=== PATIENT | female | born 1995 | race Two or more races ===

== ENCOUNTER 2024-10-08 22:21 | Inpatient (IN) | payer MEDICAID, OTHER ==
[~2024-10-08] VITALS: Ht 147.3 cm; Wt 58.6 kg
--- NOTE | 2024-10-08 22:43 | ED.PDOC ---
HPI Comments 28 year old female who came to ER for chest pains. Patient states she was at home earlier, just laying down when she started experiencing palpitations, chest pains and dizziness. She then had a witnessed syncopal attack. Patient states she has been having this symptoms recently and has been having episodes of passing out as well. Chief Complaint: Chest Pain Time Seen by MD: 22:42 Reviewed Notes: Nurses Notes Allergies: Coded Allergies: NO KNOWN ALLERGIES (Unverified , 10/08/24) Information Source: Patient Mode of Arrival: Ambulatory Severity: Moderate Timing: Hours Duration: Minutes Prehospital treatment: None Location: Substernal Radiation: No Radiation Quality: Other (Palpitations) Onset: With Light Exertion PE Risk Factors: None Associated Signs and Symptoms: SOB, Palpitations, Diaphoresis, Syncope Past Medical History PAST MEDICAL HISTORY: Denies Surgical History: Denies all surgeries INSPECTOR MULTIFOCAL LENS History: Denies all INSPECTOR MULTIFOCAL LENS Hx Family History Family History: Reviewed,noncontributory to illness Social History Smoker: Non-Smoker Alcohol: Denies ETOH Use Drugs: Denies Drug Use Lives In: Home Constitutional: denies: chills, diaphoresis, fatigue, fever, malaise, sweats, weakness, others EENTM: denies: blurred vision, double vision, ear bleeding, ear discharge, ear drainage, ear pain, ear ringing, eye pain, eye redness, hearing loss, mouth pain, mouth swelling, nasal discharge, nose bleeding, nose congestion, nose pain, photophobia, tearing, throat pain, throat swelling, voice changes, others Respiratory: denies: cough, hemoptysis, orthopnea, SOB at rest, shortness of breath, SOB with excertion, stridor, wheezing, others Cardiovascular: reports: chest pain, dizzy spells, palpitations, syncope; denies: diaphoresis, Dyspnea on exertion, edema, irregular heart beat, left arm pain, lightheadedness, PND, others Gastrointestinal: denies: abdomen distended, abdominal pain, blood streaked bowels, constipated, diarrhea, dysphagia, difficulty swallowing, hematemesis, melena, nausea, poor appetite, poor fluid intake, rectal bleeding, rectal pain, vomiting, others Genitourinary: denies: abnormal vagina bleeding, burning, dyspareunia, dysuria, flank pain, frequency, hematuria, incontinence, pain, , vagina discharge, urgency, others Neurological: denies: dizziness, fainting, headache, left sided numbness, left sided weakness, numbness, paresthesia, pre-existing deficit, right sided numbness, right sided weakness, seizure, speech problems, tingling, tremors, weakness, others Musculoskeletal: denies: back pain, gout, joint pain, joint swelling, muscle pa in, muscle stiffness, neck pain, others Integumetry: denies: bruises, change in color, change in hair/nails, dryness, laceration, lesions, lumps, rash, wounds, others Allergic/Immunocompromised: denies: Difficulty Healing, Frequent Infections, Hives, Itching, others Hematologic/Lymphatic: denies: anemia, blood clots, easy bleeding, easy bruising, swollen glands, others Endocrine: denies: excessive hunger, excessive sweating, excessive thirst, excessive urination, flushing, intolerance to cold, intolerance to heat, unexplained weight gain, unexplained weight loss, others Psychiatric: denies: anxiety, bipolar disorder, depression, hopeless, panic disorder, schizophrenia, sleepless, suicidal, others Physical Exam General Appearance: No Apparent Distress, Normal HEENT: Normal ENT Inspection, Pharynx Normal, TMs Normal Neck: Full Range of Motion, Non-Tender, Normal, Normal Inspection Respiratory: Chest Non-Tender, Lungs Clear, No Accessory Muscle Use, No Respiratory Distress, Normal Breath Sounds Cardiovascular: No Edema, No JVD, No Murmur, No Gallop, Normal Peripheral Pulses, Regular Rate/Rhythm Breast Exam: Deferred Gastrointestinal: No Organomegaly, Non Tender, No Pulsatile Mass, Normal Bowel Sounds, Soft Genitalia: Deferred Pelvic: Deferred Rectal: Deferred Extremities: No calf tenderness, Normal capillary refill, Normal inspection, Normal range of motion, Non-tender, No pedal edema Musculoskeletal : Apperance: Normal Neurologic: Alert, sterilization technician II-XII nml as Tested, No Motor Deficits, Normal Affect, Normal Mood, No Sensory Deficits Cerebellar Function: Normal Reflexes: Normal Skin: Dry, Normal Color, Warm Lymphatic: No Adenopathy Was a procedure done? Was a procedure done?: No CP Differential Dx Differential Diagnosis: Angina, Anxiety / Panic Attack, Electrolyte Disorder Differential Diagnosis: Angina, Chest Wall Pain, Costochondritis, Esophageal reflux/spasm, Gastritis, Myocardial Infarction, Pneumonia X-Ray, Labs, Meds, VS Vital Signs Date Time Temp Pulse Resp B/P (MAP) Pulse Ox O2 Delivery O2 Flow Rate FiO2 10/08/24 23:32 89 17 97 Room Air* 0 21 10/08/24 23:31 98.3 92 19 123/86 (98) 100 98.3 10/08/24 23:29 93 10/08/24 22:32 98.7 91 18 119/91 (100) 100 98.7 10/08/24 22:27 89 Lab Test 10/08/24 23:14 10/08/24 22:30 Range/Units Troponin I High Sensitivity 6 7 </=34 ng/L White Blood Count 6.0 4.4-10.8 10^3/uL Red Blood Count 4.67 4.0-5.20 10^6/uL Hemoglobin 13.6 12.2-16.2 g/dL Hematocrit 40.8 36.0-46.0 % Mean Corpuscular Volume 87.2 80.0-100.0 fL Mean Corpuscular Hemoglobin 29.0 28.0-32.0 pg Mean Corpuscular Hemoglobin Concent 33.3 32.0-36.0 g/dL Red Cell Distribution Width 12.6 11.8-14.3 % Platelet Count 180 140-450 10^3/uL Mean Platelet Volume 8.8 6.9-10.8 fL Neutrophils (%) (Auto) 53.8 37.0-80.0 % Lymphocytes (%) (Auto) 37.1 10.0-50.0 % Monocytes (%) (Auto) 7.5 0.0-12.0 % Eosinophils (%) (Auto) 1.2 0.0-7.0 % Basophils (%) (Auto) 0.4 0.0-2.0 % Neutrophils # (Auto) 3.2 1.6-8.6 10 ^3/uL Lymphocytes # (Auto) 2.2 0.4-5.4 10 ^3/uL Monocytes # (Auto) 0.4 0-1.3 10 ^3/uL Eosinophils # (Auto) 0.1 0-0.8 10 ^3/uL Basophils # (Auto) 0 0-0.2 10 ^3/uL Nucleated Red Blood Cells 0.1 % Urine Color Light-yellow Yellow Urine Clarity Clear Clear Urine pH 7.0 5.0-9.0 Urine Specific [place] 1.027 1.001-1.035 Urine Protein Negative Negative Urine Ketones Negative Negative Urine Blood Negative Negative /uL Urine Nitrite Negative Negative Urine Bilirubin Negative Negative Urine Urobilinogen Normal Negative mg/dL Urine Leukocyte Esterase Trace Negative /uL Urine RBC 1 0 - 4 /hpf Urine Microscopic WBC 3 0-5 /HPF Urine Squamous Epithelial Cells Few <5 /hpf Urine Bacteria Few H None Seen /hpf Urine Hyaline Casts Few 0 - 2 /lpf Urine Glucose Normal Normal mg/dL Urine Test Negative Negative Sodium Level 139 136-145 mmol/L Potassium Level 4.0 3.5-5.1 mmol/L Chloride Level 106 98-107 mmol/L Carbon Dioxide Level 26 20-31 mmol/L Anion Gap 7 5-15 Blood Urea Nitrogen 10 9-23 mg/dL Creatinine 0.78 0.550-1.02 mg/dL Glomerular Filtration Rate Calc 106 >90 mL/min BUN/Creatinine Ratio 12.8 10.0-20.0 Serum Glucose 103 74-106 mg/dL Calcium Level 9.9 8.7-10.4 mg/dL Urine Opiates Screen Neg NEGATIVE Urine Fentanyl Screen Neg NEGATIVE Urine Barbiturates Screen Neg NEGATIVE Urine Phencyclidine Screen Neg NEGATIVE Urine Amphetamines Screen Neg NEGATIVE Urine Benzodiazepines Screen Neg NEGATIVE Urine Cocaine Screen Neg NEGATIVE Urine Cannabinoids Screen Neg NEGATIVE Current Medications Medications (Trade) Dose Ordered Sig/Dilma Route Start Time Stop Time Status Last Admin Ondansetron HCl (Zofran) 4 mg ONCE ONCE IV 10/08/24 22:45 10/08/24 22:46 DC 10/08/24 23:50 Sodium Chloride 1,000 ml @ 1,000 mls/hr Q1H ONCE IV 10/08/24 22:45 10/08/24 23:44 DC 10/08/24 23:50 Time of 1ST Reevaluation: 22:37 Reevaluation 1ST: Unchanged Patient Education/Counseling: Diagnosis, Treatment Family Education/Counseling: No Family Present Departure 1 Departure Time of Disposition: 00:42 (Patient presented with syncope today and should be admitted. Data: 1. I ordered and reviewed the result of at least 3 labs in cluding a CBC, BMP, and troponin. 2. I independently interpreted the following tests: EKG which shows a normal sinus rhythm and a chest x-ray which shows benign chest and a CT head which shows benign brain.Risk:This patient has a high risk of morbidity due to further diagnostic testing or treatment and may suffer from an acute cardiac, neurologic, or infectious disorder. Rationale: Patient should be admitted to the hospital for further management.) Impression: Primary Impression: Syncope and collapse Additional Impression: Acute chest pain Disposition: ADMITTED INPATIENT Admit to: Med Surg Condition: Serious Critical Care Note Critical Care Time?: No Stability Stability form required: No Heart Score Heart Score: Heart Score Response (Comments) Value History Slightly Suspicious 0 EKG Normal 0 Age <45 0 Risk Factors No known risk factors 0 Troponin Normal limit 0 Total 0 I personally scribed for OMAR BANKS MD ([email or web address]) on 10/08/24 at 22:43. Electronically submitted by Fabrizio Jacobsen ([email or web address]). OMAR BANKS MD Oct 08, 2024 22:43
[2024-10-08 23:10] LABS: Basophils # (auto) 0 10 ^3/uL (0-0.2); Basophils % (auto) 0.4 % (0.0-2.0); Eosinophils # (auto) 0.1 10 ^3/uL (0-0.8); Eosinophils % (auto) 1.2 % (0.0-7.0); Hematocrit 40.8 % (36.0-46.0); Hemoglobin 13.6 g/dL (12.2-16.2); Lymphocytes # (auto) 2.2 10 ^3/uL (0.4-5.4); Lymphocytes % (auto) 37.1 % (10.0-50.0); Mean Corpuscular Hgb Conc. 33.3 g/dL (32.0-36.0); Mean Corpuscular Volume 87.2 fL (80.0-100.0); Monocytes # (auto) 0.4 10 ^3/uL (0-1.3); Monocytes % (auto) 7.5 % (0.0-12.0); Neutrophils # (auto) 3.2 10 ^3/uL (1.6-8.6); Neutrophils % (auto) 53.8 % (37.0-80.0); Nucleated Red Blood Cells % 0.1 %; Platelet Count (auto) 180 10^3/uL (140-450); Red Blood Cells 4.67 10^6/uL (4.0-5.20); Red Cell Distribution Width 12.6 % (11.8-14.3)
[2024-10-08 23:15] LABS: Anion Gap 7 (5-15); Carbon Dioxide 26 mmol/L (20-31); Chloride 106 mmol/L (98-107); Sodium 139 mmol/L (136-145)
[2024-10-08 23:16] LABS: Calcium 9.9 mg/dL (8.7-10.4); Urine Bacteria FEW /hpf (None Seen); Urine Blood Negative /uL (Negative); Urine Clarity Clear (Clear); Urine Color Light-Yellow (Yellow); Urine Hyaline Cast FEW /lpf (0 - 2); Urine Protein, UAD Negative (Negative); Urine Specific Gravity 1.027 (1.001-1.035); Urine Squamous Epithelial Cell FEW /hpf (<5); Urine Urobilinogen Normal (Negative); Urine WBC 3 /HPF (0-5)
[2024-10-08 23:21] LABS: BUN/Creatinine Ratio 12.8 (10.0-20.0); Blood Urea Nitrogen 10 mg/dL (9-23); Glucose 103 mg/dL (74-106)
[2024-10-08 23:26] LABS: Amphetamine Screen, Urine Neg (NEGATIVE); Barbiturate Scree,Urine Neg (NEGATIVE); Benzodiazephine Screen, Urine Neg (NEGATIVE); Cannabinoid Screen, Urine Neg (NEGATIVE); Cocaine Screen, Urine Neg (NEGATIVE); Opiate Scree,Urine Neg (NEGATIVE); Phencyclidine Screen, Urine Neg (NEGATIVE)
[2024-10-08 23:32] VITALS: PULSE 89; RESP 17; O2SAT 97
[2024-10-08] MEDS: ONDANSETRON HCL 4 MG/2 ML VIAL IV ONE (23:50)
[2024-10-08] MEDS: SODIUM CHLORIDE 0.9% 1,000 ML IV ONE (23:50)
[2024-10-09] VITALS (10 sets, daily range): BP systolic 97–130; BP diastolic 56–96; PULSE 75–88; RESP 15–19; TEMP 98.2–98.6; O2SAT 96–100
--- NOTE | 2024-10-09 00:25 | DVH ---
CHEST RADIOGRAPH Indication: chest pain Technique: Single frontal view of the chest was obtained COMPARISON: None FINDINGS: Lines and Tubes: None Lungs: Clear Pleura: No effusion. No pneumothorax. Cardiomediastinal contours: Unremarkable Bones: Unremarkable IMPRESSION: 1. No acute disease.
--- NOTE | 2024-10-09 00:34 | DVH ---
EXAM: CT HEAD WITHOUT CONTRAST INDICATION: syncope TECHNIQUE: CT of the head without intravenous contrast. Radiation Dose : 1. Head: CT Dose: CTDI volume is 59.94 mGy. Dose-length product is 1061.25 mGy*cm The dose indicators for CT are the volume Computed Tomography (CT) Dose Index (CTDIvol) and the Dose Length Product (DLP), and are measured in units of mGy and mGy-cm, respectively. These indicators are not patient dose, but values generated from the CT scanner acquisition factors. The report includes radiation exposure data for exposures received during this examination. COMPARISON: None FINDINGS: There is no evidence of acute intracranial hemorrhage, extra-axial collection, mass effect, midline s hift, herniation or hydrocephalus. The ventricles, sulci and cisterns are age appropriate. The lerner-white differentiation is intact. The visualized paranasal sinuses and mastoid air cells are clear. The surrounding soft tissues and osseous structures are unremarkable. IMPRESSION: 1. No acute intracranial abnormality. Radiation optimization: All CT scans at this facility use at least one of these dose optimization susan hniques: automated exposure control mA and/or kV adjustment per patient size (includes targeted exam s where dose is matched to clinical indication) or iterative reconstruction.
[2024-10-09] MEDS: METOCLOPRAMIDE HCL 5MG/ml INJ 2ml VIAL IV ONE (01:22)
[2024-10-09] MEDS: ACETAMINOPHEN 325 MG TAB PO ONE (01:22)
[2024-10-09] MEDS ORDERED: DOCUSATE SOD 100 MG CAP PO PRN (04:00)
[2024-10-09] MEDS ORDERED: HYDROcodone-ACET 5/325MG TAB PO PRN (04:00)
[2024-10-09] MEDS ORDERED: MORPHINE SULFATE INJ 2 MG/ml SYRG IV PRN ×2 (04:00→04:45)
[2024-10-09] MEDS ORDERED: ONDANSETRON HCL 4 MG/2 ML VIAL IV PRN (04:00)
[2024-10-09] MEDS: SODIUM CHLORIDE 0.9% 1,000 ML IV SCH (04:04)
[2024-10-09] MEDS: SODIUM CHLORIDE 0.9% 1,000 ML IV ONE (04:20)
[2024-10-09] MEDS ORDERED: NITROGLYCERIN 0.4 MG SL TAB SL PRN (04:45)
--- NOTE | 2024-10-09 04:46 | DVHHP2 ---
History of Present Illness Reason for Visit: Acute chest pain History of Present Illness Patient is a 28 year old female who denies past medical history presented to [facility] ED with complaint of chest pain. Patient reports she has been having substernal chest pain, associated dizziness, palpitations, had a witnessed syncopal attack that prompted this visit. Patient was seen and evaluated in the ED, laboratory data shows WBC 6.0, platelets 180, sodium 138, potassium 4.0, BUN 10, creatinine 0.78, GFR 106, glucose 103, troponin 7. Chest x-ray show no acute disease. Please see medication orders section in the computer. On my assessment, patient denied chest pain, no headache, no di zziness, no shortness of breath, no nausea, no vomiting, no fever, no chills. Patient was admitted for further evaluation and medical management. Past Medical History Denies past medical history Past Surgical History Denies all surgeries Family History Reviewed, noncontributory to the management of this case. Past Social History The patient lives at home, denies smoking, alcohol or illicit drugs abuse. Review of Systems Constitutional: No: Fever, Chills, Sweats, Weakness, Malaise, Other Eyes: No: Pain, Vision change, Conjunctivae inflammation, Eyelid inflammation, Other, Redness ENT: No: Ear pain, Ear discharge, Nose pain, Nose discharge, Nose congestion, Mouth pain, Mouth swelling, Throat pain, Throat swelling, Other Respiratory: No: Cough, Dry, Shortness of breath, SOB with excertion, Wheezing, Hemoptysis, Pleuritic Pain, Sputum, Wheezing, Other Cardiovascular: Chest Pain, Palpitations, Other (Dizzy spells, syncope.); No: Orthopnea, Paroxysmal Noc. Dyspnea, Edema, Lt Headedness Gastrointestinal: No: Nausea, Vomiting, Abdominal Pain, Diarrhea, Constipation, Melena, Hematochezia, Other Genitourinary: No Dysuria, No Frequency, No Incontinence, No Hematuria, No Retention, No Other Musculoskeletal: No: other, neck pain, shoulder pain, arm pain, back pain, hand pain, leg pain, foot pain Skin: No: Rash, Lesions, Jaundice, Bruising, Other Neurological: No: Weakness, Numbness, Incoordination, Change in speech, Confusion, Seizures, Other Allergies: Coded Allergies: NO KNOWN ALLERGIES (Unverified , 10/08/24) Medications Current Medications Medications Dose Ordered Sig/Dilma Route Start Time Stop Time Status Last Admin Dose Admin Sodium Chloride 1,000 ml @ 60 mls/hr [id number] IV 10/09/24 04:00 Acetaminophen/ Hydrocodone Bitart 1 tab Q4HP PRN PO 10/09/24 04:00 Ondansetron HCl 4 mg Q4HP PRN IV 10/09/24 04:00 Docusate Sodium 100 mg BIDPRN PRN PO 10/09/24 04:00 Acetaminophen 650 mg Q6HP PRN PO 10/09/24 04:00 Morphine Sulfate 2 mg Q4HPRN PRN IV 10/09/24 04:00 Exam Vital Signs Vital Signs Date Time Temp Pulse Resp B/P (MAP) Pulse Ox O2 Delivery O2 Flow Rate FiO2 10/09/24 04:16 86/49 (61) 10/09/24 04:00 75 14 98 10/09/24 02:14 Room Air* 0 21 10/09/24 01:15 97.9 97.9 General Appearance: Alert, Oriented X3, Cooperative, No acute distress HEENT: Atraumatic, PERRLA, EOMI, Mucous membr. moist/pink Respiratory: Clear to auscultation, Normal air movement Cardiovascular: Regular rate, Normal S1, Normal S2, No murmurs Abdominal: Normal bowel sounds, Soft, No tenderness, No hepatospenomegaly, No masses Extremities: No clubbing, No cyanosis, No edema, Normal pulses, No tenderness/swelling Skin: No rashes, No breakdown, No significant lesion Neuro: Normal gait, Normal speech, Strength at 5/5 X4 ext, Normal tone, Sensation intact, Cranial nerves 3-12 NL, Reflexes 2+ Psych/Mental Status: Mental status NL, Mood NL Labs/Xrays Labs Test 10/08/24 23:14 10/08/24 22:30 Range/Units Troponin I High Sensitivity 6 </=34 ng/L White Blood Count 6.0 4.4-10.8 10^3/uL Red Blood Count 4.67 4.0-5.20 10^6/uL Hemoglobin 13.6 12.2-16.2 g/dL Hematocrit 40.8 36.0-46.0 % Mean Corpuscular Volume 87.2 80.0-100.0 fL Mean Corpuscular Hemoglobin 29.0 28.0-32.0 pg Mean Corpuscular Hemoglobin Concent 33.3 32.0-36.0 g/dL Red Cell Distribution Width 12.6 11.8-14.3 % Platelet Count 180 140-450 10^3/uL Mean Platelet Volume 8.8 6.9-10.8 fL Neutrophils (%) (Auto) 53.8 37.0-80.0 % Lymphocytes (%) (Auto) 37.1 10.0-50.0 % Monocytes (%) (Auto) 7.5 0.0-12.0 % Eosinophils (%) (Auto) 1.2 0.0-7.0 % Basophils (%) (Auto) 0.4 0.0-2.0 % Neutrophils # (Auto) 3.2 1.6-8.6 10 ^3/uL Lymphocytes # (Auto) 2.2 0.4-5.4 10 ^3/uL Monocytes # (Auto) 0.4 0-1.3 10 ^3/uL Eosinophils # (Auto) 0.1 0-0.8 10 ^3/uL Basophils # (Auto) 0 0-0.2 10 ^3/uL Nucleated Red Blood Cells 0.1 % Urine Color Light-yellow Yellow Urine Clarity Clear Clear Urine pH 7.0 5.0-9.0 Urine Specific [place] 1.027 1.001-1.035 Urine Protein Negative Negative Urine Ketones Negative Negative Urine Blood Negative Negative /uL Urine Nitrite Negative Negative Urine Bilirubin Negative Negative Urine Urobilinogen Normal Negative mg/dL Urine Leukocyte Esterase Trace Negative /uL Urine RBC 1 0 - 4 /hpf Urine Microscopic WBC 3 0-5 /HPF Urine Squamous Epithelial Cells Few <5 /hpf Urine Bacteria Few H None Seen /hpf Urine Hyaline Casts Few 0 - 2 /lpf Urine Glucose Normal Normal mg/dL Urine Test Negative Negative Sodium Level 139 136-145 mmol/L Potassium Level 4.0 3.5-5.1 mmol/L Chloride Level 106 98-107 mmol/L Carbon Dioxide Level 26 20-31 mmol/L Anion Gap 7 5-15 Blood Urea Nitrogen 10 9-23 mg/dL Creatinine 0.78 0.550-1.02 mg/dL Glomerular Filtration Rate Calc 106 >90 mL/min BUN/Creatinine Ratio 12.8 10.0-20.0 Serum Glucose 103 74-106 mg/dL Calcium Level 9.9 8.7-10.4 mg/dL Urine Opiates Screen Neg NEGATIVE Urine Fentanyl Screen Neg NEGATIVE Urine Barbiturates Screen Neg NEGATIVE Urine Phencyclidine Screen Neg NEGATIVE Urine Amphetamines Screen Neg NEGATIVE Urine Benzodiazepines Screen Neg NEGATIVE Urine Cocaine Screen Neg NEGATIVE Urine Cannabinoids Screen Neg NEGATIVE PATIENT: DOUG SANDOVALACCT: [id number] UNIT: [id number] : 1995 LOC: ER ROOM / BED: / AGE / SEX: 28 / F ADM STATUS: REG ER SERVICE 0007 ORDERING PHYSICIAN: OMAR BANKS MD PROCEDURE(s): HWOCT - HEAD WITHOUT CONTRAST REASON: syncope ORDER NUMBER(s): [id number], ACCESSION NUMBER(s): [id number] EXAM: CT HEAD WITHOUT CONTRAST INDICATION: syncope TECHNIQUE: CT of the head without intravenous contrast. Radiation Dose: 1. Head: CT Dose: CTDI volume is 59.94 mGy. Dose-length product is 1061.25 mGy*cm The dose indicators for CT are the volume Computed Tomography (CT) Dose Index (CTDIvol) and the Dose Length Product (DLP), and are measured in units of mGy and mGy-cm, respectively. These indicators are not patient dose, but values generated from the CT scanner acquisition factors. The report includes radiation exposure data for exposures received during this examination. COMPARISON: None FINDINGS: There is no evidence of acute intracranial hemorrhage, extra-axial collection, mass effect, midline shift, herniation or hydrocephalus. The ventricles, sulci and cisterns are age appropriate. The lerner-white differentiation is intact. The visualized paranasal sinuses and mastoid air cells are clear. The surrounding soft tissues and osseous structures are unremarkable. IMPRESSION: 1. No acute intracranial abnormality. ORDERING PHYSICIAN: OMAR BANKS MD PROCEDURE(s): CXRP - CHEST PORTABLE REASON: chest pain ORDER NUMBER(s): [id number], ACCESSION NUMBER(s): [id number] CHEST RADIOGRAPH Indication: chest pain Technique: Single frontal view of the chest was obtained COMPARISON: None FINDINGS: Lines and Tubes: None Lungs: Clear Pleura: No effusion. No pneumothorax. Cardiomediastinal contours: Unremarkable Bones: Unremarkable IMPRESSION: 1. No acute disease. Assessment/Plan Assessment/Plan Acute abdominal pain Syncope and collapse Plan 1. Admit to telemetry unit 2. Breathing treatment 3. Pain control management 4. Management of fluids and electrolytes 5. Consultation for hospitalist 6. Diagnostic tests chest x-ray 7. DVT prophylaxis on SCDs 8. Repeat labs CBC, CMP in a.m. 9. Continue with current medical management 10. Treatment plan discussed with patient and RN. Patient verbalized understanding. Plan discussed with: Patient, Other (RN) My Orders Orders - KELECHI OBREGON DNP Procedure Category Date Status Time Allergies SHAYLA 10/09/24 In Process 03:55 Code Status CODE 10/09/24 Transmitted 03:55 Sodium Chloride 0.9% PHA 10/09/24 In Process 04:00 Oxygen Per Hour RT 10/09/24 Transmitted 03:55 Hydrocodone-Acet PHA 10/09/24 In Process 5/325mg Tab (Pilot 04:00 Ondansetron Hcl PHA 10/09/24 In Process (Zofran) 04:00 Docusate Sodium PHA 10/09/24 In Process Capsule (Colace 04:00 Complete Blood Count LAB 10/10/24 Verified 04:00 Comprehensive LAB 10/10/24 Verified Metabolic Panel 04:00 Cardiac DIET 10/09/24 Transmitted Diet-2gna,Lofat,Lochol Breakfast Condition: Serious SHAYLA 10/09/24 In Process 03:55 Acetaminophen Tablet PHA 10/09/24 In Process (Tylenol Tablet) 04:00 Bedrest With Bathroom SHAYLA 10/09/24 In Process Privileg 03:55 Morphine Sulfate PHA 10/09/24 In Process Injection 04:00 Sequential SHAYLA 10/09/24 In Process Compression Device Problem List: (1) Acute chest pain (2) Syncope and collapse Date of Service: Oct 09, 2024 Billing Provider: KELECHI OBREGON DNP Common Visit Codes: 77961-[id number] INP/OBS CARE (HIGH) KELECHI OBREGON DNP Oct 09, 2024 04:46
[2024-10-09] MEDS: SODIUM CHLORIDE 0.9% 500 ML IV ONE (05:07)
[2024-10-09] MEDS: ACETAMINOPHEN 325 MG TAB PO PRN (06:47)
[2024-10-09 11:45] LABS: INR 1.01 (0.9-1.15); Partial Thromboplastin Time 33.3 SEC (24.5-34.5); Prothrombin Time 10.7 sec (9.3-11.8)
[2024-10-09 11:56] LABS: Albumin 3.8 g/dL (3.2-4.8); Magnesium 1.8 mg/dL (1.6-2.6); Total Protein 6.3 g/dL (5.7-8.2)
[2024-10-09 11:57] LABS: Bilirubin, Direct 0.1 mg/dL (<0.3); Bilirubin, Total 0.6 mg/dL (0.2-1.0)
[2024-10-09 12:18] LABS: Beta HCG, Quantitative < 1.5 mIU/mL (1.5-4.2)
[2024-10-09 12:19] LABS: Thyroid Stimulating Hormone 1.71 uIU/mL (0.55-4.78)
--- NOTE | 2024-10-09 13:10 | DVH ---
Carotid Duplex Date: 10/09/2024 12:15 PM Clinical History: syncope Comparison: None Technique: Duplex Doppler evaluation of the extracranial carotid and vertebral arteries including color Doppler and spectral/pulsed waveform analysis was performed. Findings: Velocities and ratios within normal limits. IMPRESSION: No hemodynamically significant stenosis noted in the right carotid system. No hemodynamically significant stenosis noted in the left carotid system. Reference: Radiology 2003; 229:340-346
--- NOTE | 2024-10-09 15:37 | DVHSR ---
APPROVED REPORT EXAM: Two-dimensional and M-mode echocardiogram with Doppler and color Doppler. Blood Pressure: 111/76 mmHg INDICATION syncopal event, hx of AR dad 20s RISK FACTORS Height: 50, Weight: 131 DIMENSIONS LVDd4.4 (3.8-5.7cm)LA (2D)3.6 (1.9-4.0cm)Aortic Root2.5 (2.0-3.7cm) LVDs3.0 (2.5-4.0cm)LA (MM) (1.9-4.0cm)Aortic Cusp Exc1.6 (1.5-2.0cm) EF (%) 60.0 (55-70%)Rt. Atrium3.7 (1.9-4.0cm)Asc. Aorta cm IVSd0.7 (0.7-1.1cm)RV (D) (1.8-2.4cm) PWd0.9 (0.7-1.1cm) Mitral Valve MitralMitral Stenosis E wave1.09m/sMV Mean GR.mmHg A wave0.64m/sMV Peak GR.mmHg E/A ratio1.72D MVAcm2 DECEL [id number] 1/2 [id number] IVRTmsDop MVA2.68cm2 Aortic Valve Aortic ValveAortic Stenosis V11.12m/Mariano Mean GR.5mmHg V21.54m/Mariano Peak GR.9mmHg LVOT Diameter1.7 (1.8-2.4cm)Doppler AVA1.65cm2 Pulmonic Valve V20.85m/s Tricuspid Valve TR Velocity1.95m/s [id number] Conclusion Technically a good study sinus rhythm. Normal chamber sizes. Valves are normal. Left ventricular systolic performance is preserved at 60% with normal RV function. Doppler reveals no significant abnormalities. Normal Doppler. Small inferior pericardial effusion not hemodynamically significant. No masses or vegetations
--- NOTE | 2024-10-09 15:40 | DVHPNRES ---
Progress Note Date Seen: Oct 09, 2024 Resident Creating Document: PATRICK VOGT RESIDENT Medical Necessity Reason Pt with a Central, PICC or Fol: No Subjective Review of Systems This is a 28-year-old female with no relevant past medical history who presented to the ER with a chief complaint of syncopal episode and chest pain. 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 She has been having chest pain for the past 2 months on exertion and on walking. She reports standing up and was walking when she felt lightheaded and collapsed, her mother caught her from falling but patient lost consciousness for a couple of seconds. She did not had any tongue biting or seizure-like activity. Did not lose urine or bowel. She has 2-3 episodes like these in the past 2 months. Family history significant for sudden cardiac in father at the age of 20s when the patient was 4-year-old. Social history: She denies smoking drinking illicit drug use. Home Medication: Denies taking any medication. Does not have a PCP Patient seen and examined at the bedside. Orthostatic vitals are unremarkable. CT head unremarkable. BNP 1 1 6. Echocardiogram ordered. tele monitor, shows NSR, no events. Carotid Doppler unremarkable. Objective vital signs Vital Sign Date Time Temp Pulse Resp B/P (MAP) Pulse Ox O2 Delivery O2 Flow Rate FiO2 10/09/24 12:13 88 111/76 (88) 127/87 (100) 130/96 (107) 10/09/24 08:53 98.2 15 99 98.2 10/09/24 08:00 Room Air* 0 21 Total Intake and Output 10/08/24 10/08/24 10/09/24 15:00 23:00 07:00 Intake Total 2500 ml Balance 2500 ml medications Current Medications Medications Dose Ordered Sig/Dilma Route Start Time Stop Time Status Last Admin Dose Admin Sodium Chloride 1,000 ml @ 60 mls/hr [id number] IV 10/09/24 04:00 10/09/24 05:37 60 MLS/HR Acetaminophen/ Hydrocodone Bitart 1 tab Q4HP PRN PO 10/09/24 04:00 Ondansetron HCl 4 mg Q4HP PRN IV 10/09/24 04:00 Docusate Sodium 100 mg BIDPRN PRN PO 10/09/24 04:00 Acetaminophen 650 mg Q6HP PRN PO 10/09/24 04:00 10/09/24 06:47 650 MG Morphine Sulfate 2 mg Q4HPRN PRN IV 10/09/24 04:00 Nitroglycerin 0.4 mg Q5MINP PRN SL 10/09/24 04:45 Morphine Sulfate 2 mg Q30M PRN IV 10/09/24 04:45 Examination Patient lying in bed, in no acute distress General: Well-built, afebrile, palor, mucosae are moist Cardiovascular: Regular S1 and S2. No murmurs, gallops or rubs. No JVD elevation. No pedal edema Respiratory: Normal B/L air entry on room air. Clear lung sounds on auscultation Abdomen: Soft, nontender, nondistended, normoactive bowel sounds, no rebound tenderness, no organomegaly, no masses Genitourinary: Deferred MSK/skin: Mobilizes 4 limbs. Skin is dry and warm Neurological: No motor, no sensitive deficits, normal speech. Pupils are isocoric and reactive. Psych/Mental Status: A/Ox3 laboratory and microbiology Laboratory Tests 10/08/24 22:30 Test 10/08/24 22:30 Range/Units Serum Glucose 103 74-106 mg/dL Labs and/or images reviewed: Labs reviewed by me, Image(s) reviewed by me Problem List/Assessment/Plan Problem List/Assessment/Plan Recurrent Syncopal episodes Chest pain, rule out ACS Rule out orthostatic hypotension Family history of sudden cardiac Rule out stroke Head CT unremarkable, carotid Doppler WNL BNP 1 1 6 Echocardiogram pending MRI brain pending DVT prophylaxis: Patient is ambulatory Plan discussed with patient in which all questions have been answered Goals of care discussed for more than 20 minutes, full code status Case discussed with Dr. Birch Plan discussed with: Patient My Orders My Orders Orders - PATRICK VOGT RESIDENT Procedure Category Date Status Time Vitamin B12 LAB 10/09/24 In Process 08:52 Vitamin D, 25-Hydroxy LAB 10/09/24 In Process 08:52 Orthostatic Vital ORDERS 10/09/24 Transmitted Signs 11:08 Echo 2d Mode Cardiac US 10/09/24 Taken DOP 11:46 Carotid Duplx W Color US 10/09/24 Resulted DOP 11:46 Brain Head Wo Contrast MRI 10/09/24 Logged 13:06 Date of Service: Oct 09, 2024 Billing Provider: QUIN BIRCH DO Common Visit Codes: [id number] INP/OBS CARE(HIGH) PATRICK VOGT RESIDENT Oct 09, 2024 15:40 QUIN BIRCH DO Oct 09, 2024 20:17
--- NOTE | 2024-10-09 15:57 | DVH ---
EXAMINATION: MRI BRAIN HEAD WO CONTRAST INDICATION: syncope COMPARISON: None TECHNIQUE: Multiplanar, multisequence magnetic resonance imaging of the brain was performed without the use of i ntravenous contrast. FINDINGS: No evidence of acute or remote infarct. No intracranial hemorrhage. No mass effect. The ventricles and sulci are normal in size for age. Clear basal cisterns. Flow voids in the major intracranial vessels are maintained. No abnormality of the orbits. Paranasal sinuses and mastoid air cells are clear. No abnormality of the visualized osseous structures and extracranial soft tissues. IMPRESSION: No acute infarct, intracranial hemorrhage, mass effect, or hydrocephalus.
[2024-10-10 05:00] VITALS: BP 105/53; PULSE 94; RESP 19; TEMP 98.3; O2SAT 100
[2024-10-10 05:43] LABS: Basophils # (auto) 0 10 ^3/uL (0-0.2); Basophils % (auto) 0.4 % (0.0-2.0); Eosinophils # (auto) 0.1 10 ^3/uL (0-0.8); Eosinophils % (auto) 1.8 % (0.0-7.0); Hematocrit 34.9 % (36.0-46.0); Hemoglobin 12.1 g/dL (12.2-16.2); Lymphocytes # (auto) 1.9 10 ^3/uL (0.4-5.4); Lymphocytes % (auto) 42.4 % (10.0-50.0); Mean Corpuscular Hemoglobin 30.2 pg (28.0-32.0); Mean Corpuscular Hgb Conc. 34.6 g/dL (32.0-36.0); Mean Corpuscular Volume 87.4 fL (80.0-100.0); Monocytes # (auto) 0.4 10 ^3/uL (0-1.3); Monocytes % (auto) 8.5 % (0.0-12.0); Neutrophils # (auto) 2.1 10 ^3/uL (1.6-8.6); Neutrophils % (auto) 46.9 % (37.0-80.0); Nucleated Red Blood Cells % 0.1 %; Platelet Count (auto) 150 10^3/uL (140-450); Red Cell Distribution Width 12.6 % (11.8-14.3); White Blood Cell 4.5 10^3/uL (4.4-10.8)
[2024-10-10 06:00] LABS: Albumin 3.9 g/dL (3.2-4.8); Alkaline Phosphatase 77 U/L (46-116); Anion Gap 9 (5-15); BUN/Creatinine Ratio 13.4 (10.0-20.0); Bilirubin, Total 0.4 mg/dL (0.2-1.0); Calcium 9.3 mg/dL (8.7-10.4); Carbon Dioxide 23 mmol/L (20-31); Magnesium 1.8 mg/dL (1.6-2.6); Potassium 3.9 mmol/L (3.5-5.1); Sodium 140 mmol/L (136-145); Total Protein 6.5 g/dL (5.7-8.2)
[2024-10-10 06:01] LABS: Alanine Aminotransferase 55 U/L (7-40); Aspartate Aminotransferase 43 U/L (13-40); Blood Urea Nitrogen 9 mg/dL (9-23); Chloride 108 mmol/L (98-107); Glucose 113 mg/dL (74-106)
[2024-10-10 08:05] VITALS: PULSE 75
--- NOTE | 2024-10-10 08:50 | DVHINCON2 ---
Date of service: Oct 10, 2024 History of Present Illness 28 yo F with no PMH admitted for syncope. pt was feeling dizzy while laying down and ran into house to tell her mom. while standing, she had LOC gfor 2-3 seconds and fell. this has happened before. no PMH. no PSH. father had a hx of early in his 30s but pt has no info regarding this admittedly Past Medical History reviewed Family History: Cardiovascular disease G8 FATHER FH: cancer G8 MOTHER Allergies: Coded Allergies: NO KNOWN ALLERGIES (Unverified , 10/08/24) Home Meds No Active Prescriptions or Reported Meds Review of Systems 10 pt ros otherwise negative Vital Signs Vital Signs Date Time Temp Pulse Resp B/P (MAP) Pulse Ox O2 Delivery O2 Flow Rate FiO2 10/10/24 05:00 98.3 94 19 105/53 (70) 100 98.3 10/09/24 20:00 Room Air* 0 21 Physical Exam nad s1 s2 rrr ctab soft nt/nd no edema Labs/Diagnostic Data Labs Test 10/10/24 04:40 10/09/24 10:50 10/08/24 23:14 10/08/24 22:30 Range/Units White Blood Count 4.5 4.4-10.8 10^3/uL Red Blood Count 4.00 4.0-5.20 10^6/uL Hemoglobin 12.1 L 12.2-16.2 g/dL Hematocrit 34.9 #L 36.0-46.0 % Mean Corpuscular Volume 87.4 80.0-100.0 fL Mean Corpuscular Hemoglobin 30.2 28.0-32.0 pg Mean Corpuscular Hemoglobin Concent 34.6 32.0-36.0 g/dL Red Cell Distribution Width 12.6 11.8-14.3 % Platelet Count 150 140-450 10^3/uL Mean Platelet Volume 8.8 6.9-10.8 fL Neutrophils (%) (Auto) 46.9 37.0-80.0 % Lymphocytes (%) (Auto) 42.4 10.0-50.0 % Monocytes (%) (Auto) 8.5 0.0-12.0 % Eosinophils (%) (Auto) 1.8 0.0-7.0 % Basophils (%) (Auto) 0.4 0.0-2.0 % Neutrophils # (Auto) 2.1 1.6-8.6 10 ^3/uL Lymphocytes # (Auto) 1.9 0.4-5.4 10 ^3/uL Monocytes # (Auto) 0.4 0-1.3 10 ^3/uL Eosinophils # (Auto) 0.1 0-0.8 10 ^3/uL Basophils # (Auto) 0 0-0.2 10 ^3/uL Nucleated Red Blood Cells 0.1 % Sodium Level 140 136-145 mmol/L Potassium Level 3.9 3.5-5.1 mmol/L Chloride Level 108 H 98-107 mmol/L Carbon Dioxide Level 23 20-31 mmol/L Anion Gap 9 5-15 Blood Urea Nitrogen 9 9-23 mg/dL Creatinine 0.67 0.550-1.02 mg/dL Glomerular Filtration Rate Calc 122 >90 mL/min BUN/Creatinine Ratio 13.4 10.0-20.0 Serum Glucose 113 H 74-106 mg/dL Calcium Level 9.3 8.7-10.4 mg/dL Magnesium Level 1.8 1.6-2.6 mg/dL Total Bilirubin 0.4 0.2-1.0 mg/dL Aspartate Amino Transferase (AST) 43 H 13-40 U/L Alanine Aminotransferase (ALT) 55 H 7-40 U/L Alkaline Phosphatase 77 46-116 U/L Total Protein 6.5 5.7-8.2 g/dL Albumin 3.9 3.2-4.8 g/dL Prothrombin Time 10.7 9.3-11.8 sec Prothrombin Time INR 1.01 0.9-1.15 Activated Partial Thromboplast Time 33.3 24.5-34.5 SEC Direct Bilirubin 0.1 <0.3 mg/dL B-Type Natriuretic Peptide 116.50 0-100 pg/mL Thyroid Stimulating Hormone (TSH) 1.71 0.55-4.78 uIU/mL Beta HCG, Quantitative < 1.5 L 1.5-4.2 mIU/mL Troponin I High Sensitivity 6 </=34 ng/L Urine Color Light-yellow Yellow Urine Clarity Clear Clear Urine pH 7.0 5.0-9.0 Urine Specific [place] 1.027 1.001-1.035 Urine Protein Negative Negative Urine Ketones Negative Negative Urine Blood Negative Negative /uL Urine Nitrite Negative Negative Urine Bilirubin Negative Negative Urine Urobilinogen Normal Negative mg/dL Urine Leukocyte Esterase Trace Negative /uL Urine RBC 1 0 - 4 /hpf Urine Microscopic WBC 3 0-5 /HPF Urine Squamous Epithelial Cells Few <5 /hpf Urine Bacteria Few H None Seen /hpf Urine Hyaline Casts Few 0 - 2 /lpf Urine Glucose Normal Normal mg/dL Urine Test Negative Negative Urine Opiates Screen Neg NEGATIVE Urine Fentanyl Screen Neg NEGATIVE Urine Barbiturates Screen Neg NEGATIVE Urine Phencyclidine Screen Neg NEGATIVE Urine Amphetamines Screen Neg NEGATIVE Urine Benzodiazepines Screen Neg NEGATIVE Urine Cocaine Screen Neg NEGATIVE Urine Cannabinoids Screen Neg NEGATIVE Assessment syncope Plan/Recommendation FH doesnt constitute hx of SCD likely vasovagal syncope by history check orthostatics ecg is SR and normal, echo is normal if pt desires, she can consider genetic eval at [facility] if recurrence occurs to r/o channelopathy no inpatient cv needs at this time signing off Plan discussed with: Patient AMADO ROBERTS MD Oct 10, 2024 08:50
[2024-10-10 09:00] VITALS: BP 100/64; PULSE 73; RESP 16; TEMP 98.2; O2SAT 99
--- NOTE | 2024-10-10 09:34 | DVH ---
ULTRASOUND ABDOMEN LIMITED INDICATION: Transamnitis TECHNIQUE: Multiple real-time sonographic images of the abdomen were obtained. COMPARISON: None FINDINGS: The visualized liver parenchyma appears homogenous . The liver measures 13.5 cm. No discrete he patic lesion or intrahepatic biliary ductal dilatation is identified. There is a 1.2 cm gallstone in the gallbladder neck.. Gallbladder appears contracted. There is no per icholecystic fluid. The systems software developer reports a negative Rice's sign. The common biliary duct is not dilated. The right kidney measures 11.1 cm length. No sonographic evidence of nephrolithiasis or hydronephro sis. Visualized portions of the pancreas appears within normal limits. IMPRESSION: 1. Contracted gallbladder with a 1.2 cm calculus in the gallbladder neck. The systems software developer reports a n egative Rice's sign. There is no pericholecystic fluid. HS:Y
--- NOTE | 2024-10-10 10:11 | ECG ---
[facility] Test Date: 2024-10-08 Test Time: 23:29:40 Pat Name: DOUG CORDOVA Department: ED Room: 0286T A Gender: F Check Processing Clerk: ARTEMIO : 1995 Requested By: OMAR BANKS Order Number: [id number] Reading MD: Alok Choi Measurements Intervals Renick Rate: 83 P: 48 KS: 138 QRS: 62 QRSD: 82 T: 45 QT: 364 QTc: 428 Interpretive Statements Sinus rhythm Electronically Signed On 10-13-2024 13:18:04 PDT by Alok Choi Please click the below link to view image of tracing.
--- NOTE | 2024-10-10 10:11 | ECG ---
[facility] Test Date: 2024-10-08 Test Time: 22:27:03 Pat Name: DOUG CORDOVA Department: ED Room: [facility]6T A Gender: F Trousseau Consultant: ARVIN : 1995 Requested By: OMAR BANKS Order Number: [id number] Reading MD: Alok Choi Measurements Intervals Victor Rate: 89 P: 34 IA: 148 QRS: 69 QRSD: 80 T: 57 QT: 354 QTc: 431 Interpretive Statements Sinus rhythm RSR' in V1 or V2, right VCD or RVH Electronically Signed On 10-13-2024 13:17:57 PDT by Alok Choi Please click the below link to view image of tracing.
[2024-10-10] MEDS ORDERED: CHOL500021 OR (11:45)
--- NOTE | 2024-10-10 11:51 | DVHDSRES ---
Discharge Summary Date of Admission Resident Creating Document: PATRICK VOGT RESIDENT Oct 09, 2024 at 04:45 Date of Discharge: Oct 10, 2024 Admitting Diagnosis Syncopal episode and chest pain Labs/Diagnostic Data: Laboratory Results Test 10/10/24 04:40 10/09/24 10:50 10/08/24 23:14 10/08/24 22:30 White Blood Count 4.5 10^3/uL (4.4-10.8) Red Blood Count 4.00 10^6/uL (4.0-5.20) Hemoglobin 12.1 g/dL (12.2-16.2) Hematocrit 34.9 % (36.0-46.0) Mean Corpuscular Volume 87.4 fL (80.0-100.0) Mean Corpuscular Hemoglobin 30.2 pg (28.0-32.0) Mean Corpuscular Hemoglobin Concent 34.6 g/dL (32.0-36.0) Red Cell Distribution Width 12.6 % (11.8-14.3) Platelet Count 150 10^3/uL (140-450) Mean Platelet Volume 8.8 fL (6.9-10.8) Neutrophils (%) (Auto) 46.9 % (37.0-80.0) Lymphocytes (%) (Auto) 42.4 % (10.0-50.0) Monocytes (%) (Auto) 8.5 % (0.0-12.0) Eosinophils (%) (Auto) 1.8 % (0.0-7.0) Basophils (%) (Auto) 0.4 % (0.0-2.0) Neutrophils # (Auto) 2.1 10 ^3/uL (1.6-8.6) Lymphocytes # (Auto) 1.9 10 ^3/uL (0.4-5.4) Monocytes # (Auto) 0.4 10 ^3/uL (0-1.3) Eosinophils # (Auto) 0.1 10 ^3/uL (0-0.8) Basophils # (Auto) 0 10 ^3/uL (0-0.2) Nucleated Red Blood Cells 0.1 % Sodium Level 140 mmol/L (136-145) Potassium Level 3.9 mmol/L (3.5-5.1) Chloride Level 108 mmol/L (98-107) Carbon Dioxide Level 23 mmol/L (20-31) Anion Gap 9 (5-15) Blood Urea Nitrogen 9 mg/dL (9-23) Creatinine 0.67 mg/dL (0.550-1.02) Glomerular Filtration Rate Calc 122 mL/min (>90) BUN/Creatinine Ratio 13.4 (10.0-20.0) Serum Glucose 113 mg/dL (74-106) Calcium Level 9.3 mg/dL (8.7-10.4) Magnesium Level 1.8 mg/dL (1.6-2.6) Total Bilirubin 0.4 mg/dL (0.2-1.0) Aspartate Amino Transferase (AST) 43 U/L (13-40) Alanine Aminotransferase (ALT) 55 U/L (7-40) Alkaline Phosphatase 77 U/L (46-116) Total Protein 6.5 g/dL (5.7-8.2) Albumin 3.9 g/dL (3.2-4.8) Prothrombin Time 10.7 sec (9.3-11.8) Prothrombin Time INR 1.01 (0.9-1.15) Activated Partial Thromboplast Time 33.3 SEC (24.5-34.5) Direct Bilirubin 0.1 mg/dL (<0.3) B-Type Natriuretic Peptide 116.50 pg/mL (0-100) Vitamin B12 Level 412 pg/mL (211-911) Vitamin D 25-Hydroxy 27.3 ng/mL (30.0-100) Thyroid Stimulating Hormone (TSH) 1.71 uIU/mL (0.55-4.78) Beta HCG, Quantitative < 1.5 mIU/mL (1.5-4.2) Troponin I High Sensitivity 6 ng/L (</=34) Urine Color Light-yellow (Yellow) Urine Clarity Clear (Clear) Urine pH 7.0 (5.0-9.0) Urine Specific [place] 1.027 (1.001-1.035) Urine Protein Negative (Negative) Urine Ketones Negative (Negative) Urine Blood Negative /uL (Negative) Urine Nitrite Negative (Negative) Urine Bilirubin Negative (Negative) Urine Urobilinogen Normal mg/dL (Negative) Urine Leukocyte Esterase Trace /uL (Negative) Urine RBC 1 /hpf (0 - 4) Urine Microscopic WBC 3 /HPF (0-5) Urine Squamous Epithelial Cells Few /hpf (<5) Urine Bacteria Few /hpf (None Seen) Urine Hyaline Casts Few /lpf (0 - 2) Urine Glucose Normal mg/dL (Normal) Urine Test Negative (Negative) Urine Opiates Screen Neg (NEGATIVE) Urine Fentanyl Screen Neg (NEGATIVE) Urine Barbiturates Screen Neg (NEGATIVE) Urine Phencyclidine Screen Neg (NEGATIVE) Urine Amphetamines Screen Neg (NEGATIVE) Urine Benzodiazepines Screen Neg (NEGATIVE) Urine Cocaine Screen Neg (NEGATIVE) Urine Cannabinoids Screen Neg (NEGATIVE) Other Laboratory Tests 10/10/24 04:40 Brief Hx & Hospital Course: This is a 28-year-old female with no relevant past medical history who presented to the ER with a chief complaint of syncopal episode and chest pain. 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 She has been having chest pain for the past 2 months on exertion and on walking. She reports standing up and was walking when she felt lightheaded and collapsed, her mother caught her from falling but patient lost consciousness for a couple of seconds. She did not had any tongue biting or seizure-like activity. Did not lose urine or bowel. She has 2-3 episodes like these in the past 2 months. Family history significant for sudden cardiac in father at the age of 20s when the patient was 4-year-old. Social history: She denies smoking drinking illicit drug use. Home Medication: Denies taking any medication. Does not have a PCP During hospitalization, EKG shows normal sinus rhythm, telemetry was unremarkable. Ruled out orthostatic hypotension. CT head and MRI brain was unremarkable. BNP 116, echocardiogram showed Normal chamber sizes, Valves are normal. Left ventricular systolic performance is preserved at 60% with normal RV function. Carotid Doppler was unremarkable. Hospice Massage Therapist consulted - patient likely has vasovagal syncope. if pt desires, she can consider genetic eval at [facility] if recurrence occurs to r/o channelopathy. She also had transaminitis, liver ultrasound shows Contracted gallbladder with a 1.2 cm calculus in the gallbladder neck. The medical device assembler reports a negative Rice's sign. There is no pericholecystic fluid. Repeat orthostatics were completed 10/10 which showed pulse going up from 92 till 113 bpm, likely postural tachycardia syndrome. Blood pressure also increased. 10/10-patient is hemodynamically stable, clinically stable and is therefore being discharged home with the advice to follow up with discharge clinic within 7 days, primary care physician within 7 days. Physical examination the day of discharge: General: Well-built, afebrile, palor, mucosae are moist Cardiovascular: Regular S1 and S2. No murmurs, gallops or rubs. No JVD elevation. No pedal edema Respiratory: Normal B/L air entry on room air. Clear lung sounds on auscultation Abdomen: Soft, nontender, nondistended, normoactive bowel sounds, no rebound tenderness, no organomegaly, no masses Genitourinary: Deferred MSK/skin: Mobilizes 4 limbs. Skin is dry and warm Neurological: No motor, no sensitive deficits, normal speech. Pupils are isocoric and reactive. Psych/Mental Status: A/Ox3 Case discussed with Dr. Awan Consults/Reason for consult Cardiology consult for syncopal events Operations or Procedures ULTRASOUND ABDOMEN LIMITED INDICATION: Transamnitis TECHNIQUE: Multiple real-time sonographic images of the abdomen were obtained. COMPARISON: None FINDINGS: The visualized liver parenchyma appears homogenous . The liver measures 13.5 cm. No discrete hepatic lesion or intrahepatic biliary ductal dilatation is identified. There is a 1.2 cm gallstone in the gallbladder neck.. Gallbladder appears contracted. There is no pericholecystic fluid. The medical device assembler reports a negative Rice's sign. The common biliary duct is not dilated. The right kidney measures 11.1 cm length. No sonographic evidence of nephrolithiasis or hydronephrosis. Visualized portions of the pancreas appears within normal limits. IMPRESSION: 1. Contracted gallbladder with a 1.2 cm calculus in the gallbladder neck. The medical device assembler reports a negative Rice's sign. There is no pericholecystic fluid. HS:Y ATED BY: JOSE LAN MD DICTATED DATE/TIME: 10/10/24931 SIGNED BY: JOSE LAN MD SIGNED DATE/TIME: 10/10/24931 CC: ORDERING PHYSICIAN: PATRICK VOGT RESIDENT PROCEDURE(s): MBHL - BRAIN HEAD WO CONTRAST REASON: syncope ORDER NUMBER(s): [id number], ACCESSION NUMBER(s): [id number] EXAMINATION: MRI BRAIN HEAD WO CONTRAST INDICATION: syncope COMPARISON: None TECHNIQUE: Multiplanar, multisequence magnetic resonance imaging of the brain was performed without the use of intravenous contrast. FINDINGS: No evidence of acute or remote infarct. No intracranial hemorrhage. No mass effect. The ventricles and sulci are normal in size for age. Clear basal cisterns. Flow voids in the major intracranial vessels are maintained. No abnormality of the orbits. Paranasal sinuses and mastoid air cells are clear. No abnormality of the visualized osseous structures and extracranial soft tissues. IMPRESSION: No acute infarct, intracranial hemorrhage, mass effect, or hydrocephalus. ATED BY: DANE LOZADA MD DICTATED DATE/TIME: 10/09/241554 SIGNED BY: DANE LOZADA MD SIGNED DATE/TIME: 10/09/241554 CC: Condition at Discharge: Stable Final Diagnosis/Problems List Recurrent Syncopal episodes ? Likely vasovagal etiology Probable postural tachycardia syndrome (HR 92-->113) Chest pain, ruled out ACS Ruled out orthostatic hypotension Ruled out stroke Transaminitis secondary to Cholelithiasis, no acute cholecystitis Vitamin-D deficiency Discharge Disposition: Home Discharge Instruct/Medications Diet: Regular Activity: Light activity Follow Up/Referral: Follow up with primary care physician within 7 days Follow up with [facility] clinic within 7 days, if pt desires, she can consider genetic eval at [facility] if recurrence occurs to r/o channelopathy Medications: Per EMR Discharge Statement: "Patient was advised to return to the ER or call 911 if any headaches, dizziness, shortness of breath, chest pain, abdominal pain, bleeding, fevers, or worsening of medical condition. Patient was counseled about treatment plan, medications, possible side effects, patientverbalized understanding. All questions were answered to the best of my ability. This discharge took greater then 30 minutes in planning, reviewing documentation, counseling the patient, and discussing with other team members." ASSESSMENT ASSESSMENT Assessment Recurrent Syncopal episodes Chest pain, ruled out ACS Ruled out orthostatic hypotension Ruled out stroke G[place] - no S/S Vitamin-D deficiency Addendum Addendum Addendum I was physically present for the booth portions of the service provided to patient by THE RESIDENT. I have reviewed the documentation, discussed the case with resident and agree with the resident's documentation except as noted. Also the patient's clinical case was discussed with the patient's nurse. This medical document was created using an electronic medical record system with computerized dictation system. Although this document has been carefully reviewed, there might still be some phonetic and typographical errors. These areas are purely typographical due to imperfections of the software programs, and do not reflect any compromise in the patient's medical care. Late signature. Date of Service: Oct 10, 2024 Billing Provider: KATHLEEN AWAN MD Common Visit Codes: 85275-VXG/OBS DISCH DAY >30min PATRICK VOGT RESIDENT Oct 10, 2024 11:51 KATHLEEN AWAN MD Oct 10, 2024 23:03
[2024-10-10 13:00] VITALS: BP 104/64; PULSE 72; RESP 16; TEMP 98.3; O2SAT 100
== END 2024-10-10 14:32 | disposition home or self-care (01) | DRG 204 ==
LOC: ER 22:21 → OVERFLOW 10-09 04:45 → TELE-WESTW 10-09 06:34
PROVIDERS: ADMIT Internal Medicine; ATTEND Internal Medicine
DX: R55 Syncope and collapse (principal); G90.A Postural orthostatic tachycardia syndrome [POTS]; E55.9 Vitamin D deficiency, unspecified; M94.0 Chondrocostal junction syndrome [Tietze]; R74.01 Elevation of levels of liver transaminase levels; Z82.49 Family history of ischemic heart disease and other diseases of the circulatory system
CPT/HCPCS: 36415; 70450; 70551; 71045; 76705; 80048; 80053; 80076; 80307; 81001; 81025; 82306; 82607; 83735; 83880; 84443; 84484; 84702; 85025; 85610; 85730; 93005; 93306; 93886; 96361; 96374; 96375; G0378; J2405